=== PATIENT | male | born 1990 ===

== ENCOUNTER 2017-05-11 14:47 | Emergency (ER) | payer BC ==
[2017-05-11 16:04] VITALS: BP 144/67
--- NOTE | 2017-05-11 16:23 | UC ---
Respiratory Complaint HPI - HPI Summary HPI Summary: 27 yo male with <48 hour hx of f/c, nasal congestion, cough has myalgias and DE ANDA - History of Current Complaint Chief Complaint: UCGeneralIllness Stated Complaint: URI Time Seen by Provider: 05/11/17 16:09 Hx Obtained From: Patient Onset/Duration: Sudden Onset, Lasting Hours Timing: Constant Severity Initially: Moderate Severity Currently: Moderate Pain Intensity: 6 Pain Scale Used: 0-10 Numeric Character: Cough: Nonproductive Aggravating Factors: Nothing Alleviating Factors: Nothing Associated Signs And Symptoms: Positive: Fever, Chills, Nasal Congestion, Sinus Discomfort - Allergies/Home Medications Allergies/Adverse Reactions: Allergies Allergy/AdvReac Type Severity Reaction Status Date / Time No Known Allergies Allergy Verified 05/11/17 16:04 PMH/Surg Hx/FS Hx/Imm Hx Previously Healthy: Yes - Surgical History Surgical History: Yes Surgery Procedure, Year, and Place: wisdom teeth extraction, OTHER DENTAL EXTRACTIONS - Family History Known Family History: Positive: Hypertension - Social History Alcohol Use: Weekly Alcohol Amount: ONCE/WEEK Substance Use Type: None Smoking Status (MU): Current Some Day Smoker Type: Smokeless Tobacco - Immunization History Most Recent Tetanus Shot: UNKNOWN Review of Systems Constitutional: Fever, Chills Skin: Negative Eyes: Negative ENT: Nasal Discharge, Sinus Congestion Respiratory: Cough Cardiovascular: Negative Gastrointestinal: Negative Genitourinary: Negative Motor: Negative Neurovascular: Negative Musculoskeletal: Myalgia Neurological: Headache Psychological: Negative Is Patient Immunocompromised?: No All Other Systems Reviewed And Are Negative: Yes Physical Exam Triage Information Reviewed: Yes Appearance: Well-Appearing, No Pain Distress, Well-Nourished Vital Signs: Initial Vital Signs Temp 97.4 F 05/11/17 15:52 Pulse 74 05/11/17 15:52 Resp 18 05/11/17 15:52 BP 144/67 05/11/17 15:52 Pulse Ox 100 05/11/17 15:52 Vital Signs Reviewed: Yes Eyes: Positive: Conjunctiva Clear ENT: Positive: Hearing grossly normal, Nasal congestion, Nasal drainage, Uvula midline. Negative: Trismus, Muffled voice, Hoarse voice, Dental tenderness, Sinus tenderness Neck: Positive: Supple, Nontender, No Lymphadenopathy Respiratory: Positive: Lungs clear, Normal breath sounds, No respiratory distress, No accessory muscle use Cardiovascular: Positive: RRR, No Murmur Musculoskeletal: Positive: ROM Intact, No Edema Neurological: Positive: Alert Psychological Exam: Normal Skin Exam: Normal UC Diagnostic Evaluation - Laboratory O2 Sat by Pulse Oximetry: 100 - normal /not hhypoxic Respiratory Course/Dx - Differential Dx/Diagnosis Provider Diagnoses: influenza (or influenza like illness) Discharge - Discharge Plan Condition: Stable Disposition: HOME Prescriptions: Oseltamivir CAP* [Tamiflu CAP*] 75 mg PO BID #10 cap Patient Education Materials: Influenza (ED) Referrals: No Primary Care Phys,NOPCP [Primary Care Provider] - Additional Instructions: rest fluids tylenol or advil recheck for new or worsening symptoms recheck in 3-4 days if not better
== END 2017-05-11 16:25 | disposition home or self-care (01) ==
LOC: UCEAST 14:47
DX: J11.1 Influenza due to unidentified influenza virus with other respiratory manifestations (principal); Z72.0 Tobacco use
CPT/HCPCS: 99212; G0463

== ENCOUNTER 2018-06-05 09:36 | Emergency (ER) | payer SELFPAY ==
[2018-06-05 09:53] VITALS: BP 152/79
--- NOTE | 2018-06-05 10:35 | UC ---
Back Pain HPI - HPI Summary HPI Summary: 28-year-old male comes in with a chief complaint of back pain. This started yesterday. No known trauma. The worst pain is upper lumbar lower thoracic. It hurts more when he twists turns and bends. Denies any abdominal pain no shortness of breath no fevers no weakness no numbness no radiation down the legs. He had some intermittent back pain and in his teen years but nothing recent. - History of Current Complaint Chief Complaint: UCBackPain Stated Complaint: BACK PAIN Time Seen by Provider: 06/05/18 10:23 Pain Intensity: 8 - Allergies/Home Medications Allergies/Adverse Reactions: Allergies Allergy/AdvReac Type Severity Reaction Status Date / Time No Known Allergies Allergy Verified 06/05/18 09:53 Home Medications: Home Medications Ibuprofen TAB* [Advil TAB*] 1,000 mg PO Q6H PRN 06/05/18 [History Confirmed 03/13] PMH/Surg Hx/FS Hx/Imm Hx Previously Healthy: Yes - Surgical History Surgical History: Yes Surgery Procedure, Year, and Place: wisdom teeth extraction, OTHER DENTAL EXTRACTIONS - Family History Known Family History: Positive: Hypertension - Social History Alcohol Use: Occasionally Alcohol Amount: ONCE/WEEK Substance Use Type: None Smoking Status (MU): Former Smoker Type: Smokeless Tobacco - Immunization History Most Recent Tetanus Shot: UNKNOWN Review of Systems All Other Systems Reviewed And Are Negative: Yes Constitutional: Positive: Negative Skin: Positive: Negative Eyes: Positive: Negative ENT: Positive: Negative Respiratory: Positive: Negative Cardiovascular: Positive: Negative Gastrointestinal: Positive: Negative Genitourinary: Positive: Negative Motor: Positive: Negative Neurovascular: Positive: Negative Musculoskeletal: Positive: Other: - SEE HPI Neurological: Positive: Negative Psychological: Positive: Negative Is Patient Immunocompromised?: No Physical Exam Triage Information Reviewed: Yes Appearance: Well-Appearing, Well-Nourished, Pain Distress - MILD WITH MOVEMENT OF THE BACK Vital Signs: Initial Vital Signs Temp 97.5 F 06/05/18 09:49 Pulse 64 06/05/18 09:49 Resp 16 06/05/18 09:49 BP 152/79 06/05/18 09:49 Pulse Ox 100 06/05/18 09:49 Vital Signs Reviewed: Yes Eye Exam: Normal Eyes: Positive: Conjunctiva Clear Neck exam: Normal Neck: Positive: Supple Respiratory: Positive: Lungs clear, Normal breath sounds, No respiratory distress Cardiovascular: Positive: RRR Abdomen Description: Positive: Nontender, Soft Bowel Sounds: Positive: Present Musculoskeletal: Positive: Other: - Tender to palpation upper lumbar lower thoracic spine. He's tender in the midline but mostly in the paraspinous muscles in this area. The muscles are tight. Neurological Exam: Normal Neurological: Positive: Alert, Muscle Tone Normal Psychological Exam: Normal Psychological: Positive: Age Appropriate Behavior Skin Exam: Normal Back Pain Course/Dx - Course Course Of Treatment: Patient has no respiratory or abdominal symptoms are neurologic symptoms. We'll treat with ibuprofen and Flexeril and rest. We discussed stretching. Follow-up primary care doctor reevaluate sooner if worse or any other questions or concerns. We discussed getting evaluated sooner if anything got worse. - Differential Dx/Diagnosis Provider Diagnosis: Lower thoracic back pain, Lumbar back pain Discharge - Sign-Out/Discharge Documenting (check all that apply): Patient Departure All imaging exams completed and their final reports reviewed: No Studies - Discharge Plan Condition: Stable Disposition: HOME Prescriptions: Cyclobenzaprine TAB* [Flexeril 10 MG TAB*] 10 mg PO TID PRN #15 tab MDD 3 PRN Reason: Pain Patient Education Materials: Acute Low Back Pain (ED), Lower Back Exercises (ED ) Referrals: [facility] [place] [facility] [Outside] Additional Instructions: FOLLOW UP WITH YOUR DOCTOR IF NOT COMPLETELY IMPROVED. GET RECHECKED FOR ANY WORSENING OF YOUR CONDITION; WEAKNESS, NUMBNESS, DIFFICULTY CONTROLLING BOWEL OR BLADDER, PAIN, FEVER OR QUESTIONS OR CONCERNS. - Billing Disposition and Condition Condition: STABLE Disposition: Home
== END 2018-06-05 10:37 | disposition home or self-care (01) ==
LOC: UCEAST 09:36
DX: M54.5 Low back pain (principal); M54.6 Pain in thoracic spine; Z87.891 Personal history of nicotine dependence
CPT/HCPCS: 99212; G0463